=== PATIENT | male | born 1995 | race Caucasian/White ===

== ENCOUNTER 2023-06-30 10:46 | Emergency (ER) | payer SELFPAY ==
[2023-06-30 10:58] VITALS: BP 105/70; PULSE 101; RESP 18; TEMP 98; BMI 17.2
[2023-06-30] MEDS ORDERED: IBUPROFEN 600 MG TABLET (FP) PO ONE (11:35)
[2023-06-30] MEDS: IBUPROFEN 600 MG TABLET (FP) PO ONE (11:39)
== END 2023-06-30 12:12 | disposition home or self-care (01) ==
LOC: JERFT 10:46
DX: M79.10 Myalgia, unspecified site (principal); R10.30 Lower abdominal pain, unspecified
CPT/HCPCS: 99283-25